=== PATIENT | female | born 1985 | race Two or more races ===

== ENCOUNTER 2018-02-19 13:58 | Observation (INO) | payer MEDICAID ==
[~2018-02-19 13:58] MED LIST: NORETAB21 PO
[2018-02-19 15:44] LABS: Urine Bacteria FEW /hpf (None Seen); Urine Blood Negative /uL (Negative); Urine Hyaline Cast FEW /lpf (0 - 2); Urine Mucus FEW (None Seen); Urine Specific Gravity 1.028 (1.001-1.035); Urine WBC 11 /hpf (0 - 5)
[2018-02-19 16:21] LABS: Basophils # (auto) 0 uL; Basophils % (auto) 0.5 % (0.0-2.0); Eosinophils # (auto) 0.1 uL; Eosinophils % (auto) 1.3 % (0.0-7.0); Hematocrit 29.2 % (36.0-46.0); Hemoglobin 9.6 g/dL (12.2-16.2); Lymphocytes # (auto) 1.7 uL; Lymphocytes % (auto) 20.5 % (10.0-50.0); Mean Corpuscular Hemoglobin 25.1 pg (28.0-32.0); Mean Corpuscular Hgb Conc. 32.9 g/dL (32.0-36.0); Mean Corpuscular Volume 76.3 fL (80.0-100.0); Monocytes # (auto) 0.6 uL; Neutrophils # (auto) 5.9 uL; Neutrophils % (auto) 70.7 % (37.0-80.0); Nucleated Red Blood Cells % 0.1 %; Platelet Count (auto) 216 10^3/uL (140-450); Red Blood Cells 3.82 10^6/uL (4.0-5.20); Red Cell Distribution Width 15.9 % (11.8-14.3); White Blood Cell 8.4 10^3/uL (4.4-10.8)
[2018-02-19 16:38] LABS: INR 0.91 (0.9-1.15); Partial Thromboplastin Time 23.6 sec (22.64-33.71); Prothrombin Time 9.9 sec (9.37-12.3)
[2018-02-19 16:42] LABS: Albumin 2.6 g/dL (3.4-5.0); BUN/Creatinine Ratio 18.5; Bilirubin, Total 0.3 mg/dL (0.2-1.0); Calcium 8.6 mg/dL (8.5-10.1); Potassium 3.9 mmol/L (3.5-5.1); Total Protein 7.2 g/dL (6.4-8.2); Uric Acid 4.4 mg/dL (2.6-6.0)
== END 2018-02-19 17:15 | disposition home or self-care (01) | DRG 566 ==
LOC: LDRP 13:58
PROVIDERS: ADMIT Specialist; ATTEND Specialist
DX: O13.3 Gestational [pregnancy-induced] hypertension without significant proteinuria, third trimester (principal); Z3A.34 34 weeks gestation of pregnancy
CPT/HCPCS: 36415; 59025; 76818; 80053; 81001; 81002; 84550; 85025; 85610; 85730; G0378

== ENCOUNTER 2018-02-23 11:20 | Observation (INO) | payer MEDICAID | END 2018-02-23 12:45 | disposition home or self-care (01) | DRG 566 | LOC: LDRP 11:20 | PROVIDERS: ADMIT Specialist; ATTEND Specialist | DX: O26.893 Other specified pregnancy related conditions, third trimester (principal); Z3A.34 34 weeks gestation of pregnancy; O10.913 Unspecified pre-existing hypertension complicating pregnancy, third trimester | CPT/HCPCS: 59025; 76818; 81002; G0378 ==

== ENCOUNTER 2018-02-27 09:38 | Observation (INO) | payer MEDICAID | END 2018-02-27 11:45 | disposition home or self-care (01) | DRG 566 | LOC: LDRP 09:38 | PROVIDERS: ADMIT Specialist; ATTEND Specialist | DX: O10.913 Unspecified pre-existing hypertension complicating pregnancy, third trimester (principal); Z3A.35 35 weeks gestation of pregnancy | CPT/HCPCS: 59025; 76818; 81002; G0378 ==

== ENCOUNTER 2018-03-06 15:05 | Observation (INO) | payer MEDICAID ==
[2018-03-06 18:32] LABS: Urine Bacteria NONE SEEN /hpf (None Seen); Urine Blood Negative /uL (Negative); Urine Mucus FEW (None Seen); Urine Specific Gravity 1.035 (1.001-1.035); Urine WBC 9 /hpf (0 - 5)
[2018-03-06 18:55] LABS: Basophils # (auto) 0 uL; Basophils % (auto) 0.6 % (0.0-2.0); Lymphocytes # (auto) 1.7 uL; Mean Corpuscular Hemoglobin 25.8 pg (28.0-32.0); Mean Corpuscular Hgb Conc. 32.3 g/dL (32.0-36.0); Mean Corpuscular Volume 79.8 fL (80.0-100.0); Neutrophils # (auto) 4.8 uL
[2018-03-06 18:56] LABS: Eosinophils # (auto) 0.1 uL; Eosinophils % (auto) 0.8 % (0.0-7.0); Hematocrit 33.4 % (36.0-46.0); Hemoglobin 10.8 g/dL (12.2-16.2); Lymphocytes % (auto) 24.2 % (10.0-50.0); Monocytes # (auto) 0.6 uL; Monocytes % (auto) 7.9 % (0.0-12.0); Neutrophils % (auto) 66.5 % (37.0-80.0); Platelet Count (auto) 182 10^3/uL (140-450); Red Blood Cells 4.19 10^6/uL (4.0-5.20); White Blood Cell 7.2 10^3/uL (4.4-10.8)
[2018-03-06 19:09] LABS: INR 0.91 (0.9-1.15); Partial Thromboplastin Time 24.5 sec (22.64-33.71); Prothrombin Time 9.9 sec (9.37-12.3)
[2018-03-06 19:13] LABS: Albumin 2.8 g/dL (3.4-5.0); BUN/Creatinine Ratio 17.6; Bilirubin, Total 0.2 mg/dL (0.2-1.0); Calcium 8.7 mg/dL (8.5-10.1); Potassium 3.8 mmol/L (3.5-5.1); Total Protein 7.2 g/dL (6.4-8.2); Uric Acid 5.1 mg/dL (2.6-6.0)
== END 2018-03-06 19:54 | disposition home or self-care (01) | DRG 566 ==
LOC: LDRP 15:05
PROVIDERS: ADMIT Specialist; ATTEND Specialist
DX: O13.3 Gestational [pregnancy-induced] hypertension without significant proteinuria, third trimester (principal); Z3A.36 36 weeks gestation of pregnancy
CPT/HCPCS: 36415; 59025; 76818; 80053; 81001; 81002; 84550; 85025; 85610; 85730; G0378

== ENCOUNTER 2018-03-08 08:17 | Observation (INO) | payer MEDICAID ==
[2018-03-08] MEDS ORDERED: LABE100T PO (08:57)
[2018-03-08] MEDS ORDERED: FERR-7 PO (08:57)
[2018-03-08] MEDS ORDERED: PREN-96 PO (08:57)
[2018-03-08 09:10] LABS: Basophils # (auto) 0 uL; Eosinophils # (auto) 0.1 uL; Hemoglobin 10.6 g/dL (12.2-16.2); Mean Corpuscular Hemoglobin 26.2 pg (28.0-32.0); Nucleated Red Blood Cells % 0.1 %
[2018-03-08 09:11] LABS: Basophils % (auto) 0.5 % (0.0-2.0); Eosinophils % (auto) 1.3 % (0.0-7.0); Hematocrit 32.2 % (36.0-46.0); Lymphocytes # (auto) 1.4 uL; Lymphocytes % (auto) 22.1 % (10.0-50.0); Mean Corpuscular Hgb Conc. 32.8 g/dL (32.0-36.0); Mean Corpuscular Volume 79.9 fL (80.0-100.0); Monocytes # (auto) 0.4 uL; Monocytes % (auto) 6.6 % (0.0-12.0); Neutrophils # (auto) 4.5 uL; Neutrophils % (auto) 69.5 % (37.0-80.0); Platelet Count (auto) 189 10^3/uL (140-450); Red Blood Cells 4.04 10^6/uL (4.0-5.20); White Blood Cell 6.5 10^3/uL (4.4-10.8)
[2018-03-08 09:21] LABS: INR 0.9 (0.9-1.15); Partial Thromboplastin Time 25.7 sec (22.64-33.71); Prothrombin Time 9.8 sec (9.37-12.3)
[2018-03-08 09:30] LABS: Albumin 2.6 g/dL (3.4-5.0); BUN/Creatinine Ratio 10.2; Bilirubin, Total 0.4 mg/dL (0.2-1.0); Calcium 8.2 mg/dL (8.5-10.1); Potassium 3.6 mmol/L (3.5-5.1); Total Protein 6.7 g/dL (6.4-8.2); Uric Acid 5.1 mg/dL (2.6-6.0)
[2018-03-08 10:18] LABS: Protein, Urine 15.7 mg/dL (0.0-11.9)
[2018-03-08 10:20] LABS: 24 Hr. Total Protein, Urine 188.4 mg/24 Hr (<149.1)
[2018-03-08] MEDS ORDERED: LABETALOL HCL 200 MG TAB ONE (11:14)
[2018-03-08] MEDS ORDERED: LABETALOL HCL 200 MG TAB PO ONE ×2 (11:15→11:30)
== END 2018-03-08 11:45 | disposition home or self-care (01) | DRG 566 ==
LOC: LDRP 08:17
PROVIDERS: ADMIT Obstetrics & Gynecology; ATTEND Obstetrics & Gynecology
DX: O13.3 Gestational [pregnancy-induced] hypertension without significant proteinuria, third trimester (principal); Z3A.36 36 weeks gestation of pregnancy
CPT/HCPCS: 36415; 59025; 80053; 84156; 84550; 85025; 85610; 85730; G0378

== ENCOUNTER 2018-03-10 11:50 | Observation (INO) | payer MEDICAID ==
[~2018-03-10 11:50] MED LIST changes: +FERR-7 PO; +LABE100T PO; +PREN-96 PO
== END 2018-03-10 13:05 | disposition home or self-care (01) | DRG 566 ==
LOC: LDRP 11:50
PROVIDERS: ADMIT Specialist; ATTEND Specialist
DX: O10.913 Unspecified pre-existing hypertension complicating pregnancy, third trimester (principal); Z3A.36 36 weeks gestation of pregnancy
CPT/HCPCS: 59025; 76818; 81002; G0378

== ENCOUNTER 2018-03-12 14:04 | Observation (INO) | payer MEDICAID ==
[~2018-03-12] VITALS: Ht 162.6 cm; Wt 84.4 kg
[~2018-03-12 14:04] MED LIST changes: -NORETAB21 PO
[2018-03-12] MEDS ORDERED: [UNRECOGNIZED DRUG - CODE] PO (15:39)
== END 2018-03-12 16:00 | disposition home or self-care (01) | DRG 566 ==
LOC: LDRP 14:04
PROVIDERS: ADMIT Obstetrics & Gynecology; ATTEND Obstetrics & Gynecology
DX: O13.3 Gestational [pregnancy-induced] hypertension without significant proteinuria, third trimester (principal); Z3A.37 37 weeks gestation of pregnancy
CPT/HCPCS: 59025; 76818; 81002; G0378

== ENCOUNTER 2018-03-14 19:02 | Observation (INO) | payer MEDICAID ==
[~2018-03-14 19:02] MED LIST changes: -LABE100T PO; +[UNRECOGNIZED DRUG - CODE] PO
[2018-03-14 20:12] LABS: Urine Bacteria NONE SEEN /hpf (None Seen); Urine Blood Negative /uL (Negative); Urine Mucus FEW (None Seen); Urine WBC 3 /hpf (0 - 5)
[2018-03-14 20:52] LABS: Basophils # (auto) 0 uL; Basophils % (auto) 0.5 % (0.0-2.0); Eosinophils # (auto) 0.1 uL; Eosinophils % (auto) 0.8 % (0.0-7.0); Hemoglobin 10.8 g/dL (12.2-16.2); Mean Corpuscular Volume 80.7 fL (80.0-100.0); Monocytes # (auto) 0.5 uL; Neutrophils # (auto) 4.5 uL; Nucleated Red Blood Cells % 0.1 %; White Blood Cell 6.8 10^3/uL (4.4-10.8)
[2018-03-14 20:54] LABS: Hematocrit 32.3 % (36.0-46.0); Lymphocytes # (auto) 1.7 uL; Lymphocytes % (auto) 24.5 % (10.0-50.0); Mean Corpuscular Hemoglobin 26.9 pg (28.0-32.0); Mean Corpuscular Hgb Conc. 33.4 g/dL (32.0-36.0); Monocytes % (auto) 7.8 % (0.0-12.0); Neutrophils % (auto) 66.4 % (37.0-80.0); Platelet Count (auto) 193 10^3/uL (140-450); Red Blood Cells 4.01 10^6/uL (4.0-5.20)
[2018-03-14 20:58] LABS: Red Cell Distribution Width 22.3 % (11.8-14.3)
[2018-03-14 20:59] LABS: INR 0.9 (0.9-1.15); Partial Thromboplastin Time 24.7 sec (22.64-33.71); Prothrombin Time 9.8 sec (9.37-12.3)
[2018-03-14 21:19] LABS: Potassium 3.6 mmol/L (3.5-5.1)
[2018-03-14 21:20] LABS: Albumin 2.6 g/dL (3.4-5.0); Bilirubin, Total 0.2 mg/dL (0.2-1.0); Calcium 8.5 mg/dL (8.5-10.1); Total Protein 6.7 g/dL (6.4-8.2)
== END 2018-03-14 20:18 | disposition home or self-care (01) | DRG 566 ==
LOC: LDRP 19:02
PROVIDERS: ADMIT Specialist; ATTEND Specialist
DX: O10.913 Unspecified pre-existing hypertension complicating pregnancy, third trimester (principal); Z3A.37 37 weeks gestation of pregnancy
CPT/HCPCS: 36415; 59025; 76818; 80053; 81001; 81002; 84550; 85025; 85610; 85730; G0378

== ENCOUNTER 2018-03-16 16:10 | Inpatient (IN) | payer MEDICAID ==
[~2018-03-16] VITALS: Ht 162.6 cm; Wt 84.4 kg
[2018-03-16] MEDS ORDERED: LACTATED RINGER'S 1,000 ML IV SCH ×2 (17:48→18:11)
[2018-03-16] MEDS ORDERED: LACTATED RINGER'S 1,000 ML IV ONE (17:48)
[2018-03-16] MEDS ORDERED: LACT. RINGERS/OXYTOCIN 20UNITS 1,000 ML IV SCH (18:11)
[2018-03-16] MEDS ORDERED: MAGNESIUM SULFATE 100 ML IV SCH (18:15)
[2018-03-16] MEDS ORDERED: NALBUPHINE HCL 10 MG/1ml INJECTION IV PRN (18:15)
[2018-03-16] MEDS ORDERED: LIDOCAINE 2% (LOCAL ANESTH.) PF 5ml SDV IJ PRN (18:15)
[2018-03-16 18:22] LABS: Basophils # (auto) 0.1 uL; Basophils % (auto) 0.7 % (0.0-2.0); Eosinophils # (auto) 0 uL; Monocytes # (auto) 0.6 uL
[2018-03-16 18:23] LABS: Eosinophils % (auto) 0.5 % (0.0-7.0); Hematocrit 35.4 % (36.0-46.0); Hemoglobin 11.7 g/dL (12.2-16.2); Lymphocytes # (auto) 1.7 uL; Lymphocytes % (auto) 23.1 % (10.0-50.0); Mean Corpuscular Hemoglobin 26.7 pg (28.0-32.0); Mean Corpuscular Volume 81.1 fL (80.0-100.0); Monocytes % (auto) 8.6 % (0.0-12.0); Neutrophils % (auto) 67.1 % (37.0-80.0); Platelet Count (auto) 196 10^3/uL (140-450); Red Blood Cells 4.36 10^6/uL (4.0-5.20); White Blood Cell 7.5 10^3/uL (4.4-10.8)
[2018-03-16 18:26] LABS: Red Cell Distribution Width 22.6 % (11.8-14.3)
[2018-03-16] MEDS ORDERED: hydrALAZINE HCL 20 MG/ML VL ONE (18:29)
[2018-03-16] MEDS: hydrALAZINE HCL 20 MG/ML VL IV SCH ×2 (18:32→22:00)
[2018-03-16 18:34] LABS: INR 0.89 (0.9-1.15); Partial Thromboplastin Time 24.2 sec (22.64-33.71); Prothrombin Time 9.7 sec (9.37-12.3)
[2018-03-16 18:37] LABS: Albumin 2.6 g/dL (3.4-5.0); BUN/Creatinine Ratio 12.9; Bilirubin, Total 0.3 mg/dL (0.2-1.0); Potassium 4.2 mmol/L (3.5-5.1); Total Protein 7.2 g/dL (6.4-8.2); Uric Acid 4.8 mg/dL (2.6-6.0)
[2018-03-16] MEDS ORDERED: PROMETHAZINE HCL 25 MG/ML 1ML IV ONE (19:00)
[2018-03-16] MEDS: SODIUM CHLORIDE 0.9% 1,000 ML IV SCH (19:17)
[2018-03-16] MEDS ORDERED: hydrALAZINE HCL 20 MG/ML VL IV ONE (19:32)
[2018-03-16] MEDS: MAGNESIUM SULFATE 40MG/ML 1,000 ML IV SCH (19:43)
[2018-03-16] MEDS ORDERED: fentaNYL CITRATE 100 MCG/2 ML VL ONE (19:44)
[2018-03-16] MEDS ORDERED: MORPHINE SULF(PF) 0.5MG/ML 10ML VIAL ONE (19:44)
[2018-03-16 19:55] LABS: Urine Bacteria FEW /hpf (None Seen); Urine Blood 1+ /uL (Negative); Urine Mucus FEW (None Seen); Urine WBC <1 /hpf (0 - 5)
[2018-03-16] MEDS ORDERED: LABETALOL HCL 5 MG/ML ML 20ML VIAL IV ONE (20:08)
[2018-03-16 20:14] LABS: Alcohol, Urine < 3.0 mg/dL (0-5); Amphetamine Screen, Urine NEGATIVE (NEGATIVE); Barbiturate Scree,Urine NEGATIVE (NEGATIVE); Benzodiazephine Screen, Urine NEGATIVE (NEGATIVE); Cannabinoid Screen, Urine NEGATIVE (NEGATIVE); Cocaine Screen, Urine NEGATIVE (NEGATIVE); Opiate Scree,Urine NEGATIVE (NEGATIVE); Phencyclidine Screen, Urine NEGATIVE (NEGATIVE)
[2018-03-16] MEDS ORDERED: ONDANSETRON HCL 4 MG/2 ML VIAL IV PRN ×2 (21:15)
[2018-03-16] MEDS ORDERED: ceFAZolin 1GM/50ML 50 ML IV SCH (21:15)
[2018-03-16] MEDS ORDERED: NALOXONE HCL 0.4 MG/ML VIAL IV PRN (21:15)
[2018-03-16] MEDS ORDERED: MORPHINE SULFATE 8mg/ml INJ SDV IV PRN (21:15)
[2018-03-16] MEDS ORDERED: diphenhdrAMINE HCL 50 MG/1 ML VL IV PRN (21:15)
[2018-03-16 22:00] VITALS: BP 156/91
[2018-03-16 23:00] VITALS: BP 158/90
[2018-03-16] MEDS: KETOROLAC TROMETH 30 MG/ML 1ML VIAL IV SCH (23:58)
[2018-03-17] VITALS (23 sets, daily range): BP systolic 124–148; BP diastolic 69–93
[2018-03-17] MEDS ORDERED: hydrALAZINE HCL 20 MG/ML VL IV PRN
[2018-03-17] MEDS: SODIUM CHLORIDE 0.9% 1,000 ML IV SCH ×2 (03:04→16:30)
[2018-03-17] MEDS ORDERED: MORPHINE SULFATE 8mg/ml INJ SDV IV PRN (04:45)
[2018-03-17] MEDS: ceFAZolin 1GM/50ML 50 ML IV SCH ×3 (04:46→22:20)
[2018-03-17] MEDS ORDERED: MORPHINE SULFATE 4 MG/ML SYR/VIAL ONE (05:12)
[2018-03-17] MEDS: KETOROLAC TROMETH 30 MG/ML 1ML VIAL IV SCH (06:01)
[2018-03-17 07:35] LABS: Basophils # (auto) 0 uL; Basophils % (auto) 0.3 % (0.0-2.0); Eosinophils # (auto) 0 uL; Lymphocytes # (auto) 1.1 uL
[2018-03-17 07:37] LABS: Eosinophils % (auto) 0.1 % (0.0-7.0); Hematocrit 33.5 % (36.0-46.0); Lymphocytes % (auto) 9.8 % (10.0-50.0); Mean Corpuscular Hemoglobin 26.7 pg (28.0-32.0); Mean Corpuscular Hgb Conc. 32.9 g/dL (32.0-36.0); Mean Corpuscular Volume 81.3 fL (80.0-100.0); Monocytes # (auto) 0.6 uL; Monocytes % (auto) 5.7 % (0.0-12.0); Neutrophils # (auto) 9.2 uL; Neutrophils % (auto) 84.1 % (37.0-80.0); Platelet Count (auto) 190 10^3/uL (140-450); Red Blood Cells 4.12 10^6/uL (4.0-5.20)
[2018-03-17 07:44] LABS: Potassium 4.1 mmol/L (3.5-5.1)
[2018-03-17 07:47] LABS: Red Cell Distribution Width 22.7 % (11.8-14.3)
[2018-03-17 07:48] LABS: Albumin 2.4 g/dL (3.4-5.0); BUN/Creatinine Ratio 15.9; Calcium 7.6 mg/dL (8.5-10.1)
[2018-03-17 07:50] LABS: Bilirubin, Total 0.4 mg/dL (0.2-1.0); Total Protein 6.4 g/dL (6.4-8.2)
[2018-03-17] MEDS: SIMETHICONE 80 MG CHEWABLE TABLET PO SCH ×3 (12:04→22:55)
[2018-03-17] MEDS: DOCUSATE CALCIUM 240 MG CAP PO SCH (12:04)
[2018-03-17] MEDS: DOCUSATE SOD 100 MG CAP PO SCH ×2 (12:04→22:55)
[2018-03-17] MEDS: IBUPROFEN 800 MG TAB PO PRN ×2 (12:05→23:08)
[2018-03-17] MEDS: MAGNESIUM SULFATE 40MG/ML 1,000 ML IV SCH (16:30)
[2018-03-17] MEDS: HYDROcodone-ACET 5/325MG TAB PO PRN (16:44)
[2018-03-17] MEDS ORDERED: PHISODERM TOP SOLN 240ML BTL TOP ONE (21:38)
[2018-03-18] VITALS (10 sets, daily range): BP systolic 110–158; BP diastolic 60–108
[2018-03-18] MEDS: HYDROcodone-ACET 5/325MG TAB PO PRN ×5 (00:49→21:37)
[2018-03-18] MEDS ORDERED: BISACODYL 10 MG RECT SUPP PR ONE (05:15)
[2018-03-18] MEDS ORDERED: BISACODYL 10 MG RECT SUPP PR PRN (05:30)
[2018-03-18] MEDS: SIMETHICONE 80 MG CHEWABLE TABLET PO SCH ×4 (05:34→21:36)
[2018-03-18] MEDS: IBUPROFEN 800 MG TAB PO PRN ×2 (08:40→16:42)
[2018-03-18] MEDS: DOCUSATE SOD 100 MG CAP PO SCH ×2 (09:54→21:36)
[2018-03-18] MEDS: DOCUSATE CALCIUM 240 MG CAP PO SCH (09:54)
[2018-03-18] MEDS: LABETALOL HCL 200 MG TAB PO SCH ×2 (11:42→21:37)
[2018-03-18] MEDS: NIFEdipine ER 30 MG TAB PO SCH (12:53)
[2018-03-19] VITALS (7 sets, daily range): BP systolic 115–146; BP diastolic 70–98
[2018-03-19] MEDS: IBUPROFEN 800 MG TAB PO PRN (03:40)
[2018-03-19] MEDS: HYDROcodone-ACET 5/325MG TAB PO PRN ×2 (05:19→10:30)
[2018-03-19] MEDS: SIMETHICONE 80 MG CHEWABLE TABLET PO SCH ×2 (05:55→12:02)
[2018-03-19] MEDS: NIFEdipine ER 30 MG TAB PO SCH (08:22)
[2018-03-19] MEDS: DOCUSATE SOD 100 MG CAP PO SCH (10:23)
[2018-03-19] MEDS: LABETALOL HCL 200 MG TAB PO SCH (10:23)
[2018-03-19] MEDS: DOCUSATE CALCIUM 240 MG CAP PO SCH (10:23)
== END 2018-03-19 16:30 | disposition home or self-care (01) | DRG 540 ==
LOC: LDRP 16:10 → OBSVTOIN 18:05 → LDRP 21:55
PROVIDERS: ADMIT Specialist; ATTEND Specialist
PROC: 10D00Z1 Extraction of Products of Conception, Low, Open Approach (ICD-10-PCS; principal; 2018-03-16 20:00)
DX: O14.94 Unspecified pre-eclampsia, complicating childbirth (principal); O36.5930 Maternal care for other known or suspected poor fetal growth, third trimester, not applicable or unspecified; O34.13 Maternal care for benign tumor of corpus uteri, third trimester; D25.9 Leiomyoma of uterus, unspecified; O13.4 Gestational [pregnancy-induced] hypertension without significant proteinuria, complicating childbirth; Z37.0 Single live birth; Z3A.37 37 weeks gestation of pregnancy
CPT/HCPCS: 36415; 51702; 59025; 76818; 80053; 80307; 81001; 81002; 83735; 84550; 85025; 85610; 85730; 86850; 86900; 86901; 96361; 96365; 96366; 96374; 96375; G0378; J0690; J1885; J2405